=== PATIENT | male | born 1950 | race American Indian/Alaskan Native ===

== ENCOUNTER 2016-10-15 23:15 | Observation (INO) | payer MEDICARE ==
--- NOTE | 2016-10-15 23:37 | C.PDOC ---
History Of Present Illness Patient was brought into the ER via EMS for public intoxication. Patient currently has no physical complaints. Time Seen by Provider: 10/15/16 23:37 History Per: Patient, EMS History/Exam Limitations: no limitations Onset/Duration Of Symptoms: Hrs Current Symptoms Are (Timing): Still Present Suicide/Self Injury Attempted (Context): None Modifying Factor(s): Alcohol Severity: None Pain Scale Rating Of: 0 Associated Symptoms: denies: Suicidal Thoughts, Suicidal Plan Involuntary Hold By: None Recent travel outside of the [place]: No Past Medical History Reviewed: Historical Data, Nursing Documentation, Vital Signs Vital Signs: Last Vital Signs Temp 97.6 F 10/16/16 00:50 Pulse 55 L 10/16/16 01:51 Resp 18 10/16/16 01:51 BP 148/89 10/16/16 01:51 Pulse Ox 97 10/16/16 01:51 - Medical History PMH: No Chronic Diseases Surgical History: No Surg Hx Family History: States: No Known Family Hx Review Of Systems Constitutional: Negative for: Fever, Chills Gastrointestinal: Negative for: Nausea, Vomiting, Diarrhea Neurological: Positive for: Other (ETOH intoxication) Physical Exam - Physical Exam Appears: Well, Non-toxic Skin: Warm, Dry, Other (ETOH on breath) Oral Mucosa: Moist Chest: Symmetrical, No Tenderness Cardiovascular: Rhythm Regular, No Murmur Respiratory: No Rales, No Rhonchi, No Wheezing Gastrointestinal/Abdominal: Soft, No Tenderness Neurological/Psych: Oriented x3 ED Course And Treatment O2 Sat by Pulse Oximetry: 98 Pulse Ox Interpretation: Normal Progress Note: pt became agitated and combative. Had to place the pt in 4 point restraints for his safety as well as the safty of the staff Reevaluation Time: 05:12 Reassessment Condition: Improved ED OBSERVATION Discharge: Yes Date of observation admission: 10/15/16 Time of observation admission: 23:48 - Observation admission statement Patient is being placed in observation because:: acute alcohol intoxication - Goals of Observation Goals of observation are:: sobriety - Progress Note Progress Note: 10/15/16 23:48 vitals stable, no complaints 10/16/16 01:50 no complaints 10/16/16 03:50 vitals stable Disposition Counseled Patient/Family Regarding: Studies Performed, Diagnosis, Need For Followup - Disposition Disposition: HOME/ ROUTINE Disposition Time: 23:37 Condition: FAIR - Clinical Impression Clinical Impression: Alcohol intoxication - Scribe Statement The provider has reviewed the documentation as recorded by the Scribpollo Obando All medical record entries made by the Alexibe were at my direction and personally dictated by me. I have reviewed the chart and agree that the record accurately reflects my personal performance of the history, physical exam, medical decision making, and the department course for this patient. I have also personally directed, reviewed, and agree with the discharge instructions and disposition.
[2016-10-15 23:42] VITALS: RESP 18
[2016-10-16 00:51] VITALS: TEMP 97.6
[2016-10-16 06:37] VITALS: BP 157/81; PULSE 51; O2SAT 99
== END 2016-10-16 05:17 | disposition home or self-care (01) ==
LOC: C.ER 23:15 → C.9OBSV 23:47
PROVIDERS: ADMIT Emergency Medicine; ATTEND Emergency Medicine
DX: F10.120 Alcohol abuse with intoxication, uncomplicated (principal); Y90.9 Presence of alcohol in blood, level not specified

== ENCOUNTER 2017-09-21 07:37 | Emergency (ER) | payer MEDICARE ==
[2017-09-21 08:29] LABS: BASO % 0.4 % (0.0-2.0); EOS # 0.1 K/uL (0.0-0.7); EOS % 0.7 % (0.0-4.0); HEMOGLOBIN 13.9 g/dL (12.0-18.0); LYMPH # 1.9 K/uL (1.0-4.3); LYMPH % 22.6 % (20.0-40.0); MEAN CELL VOLUME 97.7 fL (80.0-94.0); MEAN CORPUSCULAR HEMOGLOBIN 33.3 pg (27.0-31.0); MEAN PLATELET VOLUME 8.9 fL (7.2-11.7); MONO # 0.6 K/uL (0.0-0.8); MONO % 6.9 % (0.0-10.0); NEUT # 5.9 K/uL (1.8-7.0); NEUT % 69.4 % (50.0-75.0); NRBC % 0.1 % (0.0-2.0); RBC 4.18 Mil/uL (4.40-5.90); RED CELL DISTRIBUTION WIDTH 13.9 % (11.5-14.5); WHITE BLOOD COUNT 8.4 K/uL (4.8-10.8)
--- NOTE | 2017-09-21 08:43 | RAD ---
Chest x-ray two views History: Shortness of breath. Comparison: None available. Findings: No focal infiltrate or effusion. Small nodular densities projecting over the right lung apex and right lung base. These may represent small nodules and or granulomas. Correlation with chest CT may helpful if clinically indicated. Heart size within normal limits. Degenerative changes in the spine and shoulders. Impression: No focal infiltrate or effusion. Small nodular densities projecting over the right lung apex and right lung base. These may represent small nodules and or granulomas. Correlation with chest CT may helpful if clinically indicated.
[2017-09-21 08:48] LABS: ALB/GLOB RATIO 1.1 (1.0-2.1); ALBUMIN 4.2 g/dL (3.5-5.0); ALT/SGPT 35 U/L (21-72); AST/SGOT 72 U/L (17-59); BLOOD UREA NITROGEN 19 mg/dL (9-20); CALCIUM 9.2 mg/dl (8.6-10.4); GFR AFRICAN-AMERICAN > 60; GFR NON-AFRICAN AMERICAN 50
[2017-09-21 08:55] LABS: B-TYPE NATRIURETIC PEPTIDE 269 pg/mL (0-900)
--- NOTE | 2017-09-21 08:55 | C.PDOC ---
History Of Present Illness 66 y/o male presents to ED with complaints of right sided chest pain for 1 week associated with yellow/green phlegm productive cough. Patient reports pain is worse with deep inspiration or movement and denies tobacco use, diaphoresis, sob , nausea, vomiting or any other complaints at this time. Time Seen by Provider: 09/21/17 07:56 Chief Complaint (Nursing): Chest Pain History Per: Patient History/Exam Limitations: no limitations Onset/Duration Of Symptoms: Days Current Symptoms Are (Timing): Still Present Quality: Sharp Past Medical History Reviewed: Historical Data, Nursing Documentation, Vital Signs Vital Signs: Last Vital Signs Temp 97.5 F L 09/21/17 07:42 Pulse 59 L 09/21/17 10:21 Resp 16 09/21/17 10:21 BP 131/71 09/21/17 10:21 Pulse Ox 99 09/21/17 12:29 - Medical History PMH: HTN Surgical History: No Surg Hx Family History: States: No Known Family Hx - Social History Hx Alcohol Use: Yes Hx Substance Use: (UNKNOWN) - Immunization History Hx Tetanus Toxoid Vaccination: No (Unknown) Hx Influenza Vaccination: No (Unknown) Hx Pneumococcal Vaccination: No (Unknown) Review Of Systems Except As Marked, All Systems Reviewed And Found Negative. Cardiovascular: Positive for: Chest Pain Respiratory: Positive for: Cough Physical Exam - Physical Exam Appears: Non-toxic, No Acute Distress Skin: Warm, Dry, No Rash Head: Atraumatic, Normacephalic Eye(s): bilateral: Normal Inspection Oral Mucosa: Moist Throat: Normal, No Erythema, No Exudate Neck: Supple Chest: Tenderness (Reproducible right sided chest wall ) Cardiovascular: Rhythm Regular Respiratory: Rales, No Rhonchi, No Wheezing Gastrointestinal/Abdominal: Soft, No Tenderness, No Guarding, No Rebound Extremity: No Calf Tenderness, Capillary Refill (<2 seconds), No Swelling Neurological/Psych: Oriented x3, Normal Speech ED Course And Treatment - Laboratory Results Result Diagrams: 09/21/17 08:18 09/21/17 08:18 ECG: Interpreted By Me, Viewed By Me ECG Rhythm: Sinus Rhythm Rate From EC (BPM) O2 Sat by Pulse Oximetry: 99 (RA) Pulse Ox Interpretation: Normal Medical Decision Making Medical Decision Making: Assessment: Chest pain Plan: ECG, D-Dimer ordered. Aspirin, Azithromycin and Toradol administered Progress: patient feels better. Troponin negative. Patient heart score 3 no risk factors for cardiac problems Patient discharged and advised follow up with pmd in 2 days Disposition Counseled Patient/Family Regarding: Studies Performed, Diagnosis, Need For Followup, Rx Given - Disposition Referrals: [facility] at [facility] [Outside] Disposition: HOME/ ROUTINE Disposition Time: 12:26 Condition: STABLE Additional Instructions: follow up with your doctor tomorrow or the next day call to make an appointment take medications as prescribed return to ER if symptoms worsens or progress Prescriptions: Azithromycin [Zithromax] 250 mg PO DAILY #4 tab Benzonatate [Tessalon Perles] 100 mg PO BID PRN #14 tab PRN Reason: Cough Naproxen [Naprosyn] 500 mg PO BID PRN #16 tab PRN Reason: Pain, Moderate (4-7) traMADol [Ultram] 50 mg PO TID PRN #8 tab PRN Reason: Pain, Moderate (4-7) Instructions: Acute Bronchitis, Costochondritis (DC) Forms: [facility] (Italian), General Discharge Instructions - Clinical Impression Clinical Impression: Bronchitis, Chest wall pain - Scribe Statement The provider has reviewed the documentation as recorded by the Alexibpollo Montes All medical record entries made by the Alexibpollo were at my direction and personally dictated by me. I have reviewed the chart and agree that the record accurately reflects my personal performance of the history, physical exam, medical decision making, and the department course for this patient. I have also personally directed, reviewed, and agree with the discharge instructions and disposition.
[2017-09-21] MEDS ORDERED: Iodixanol 320 MG/ML 100 ML BOTTLE IV ONE (10:25)
--- NOTE | 2017-09-21 11:20 | CT ---
PROCEDURE: CT Chest with contrast (Pulmonary Angiogram) HISTORY: Chest pain, lung findings and elevated d-dimer COMPARISON: Plain radiographs performed earlier the same day. TECHNIQUE: Axial computed tomography images were obtained of the chest in the pulmonary arterial phase of enhancement. Coronal and sagittal reformatted images were created and reviewed. Intravenous contrast dose: 100 mL Visipaque 320 Radiation dose: Total exam DLP = 670.27 mGy-cm. This CT exam was performed using one or more of the following dose reduction techniques: Automated exposure control, adjustment of the mA and/or kV according to patient size, and/or use of iterative reconstruction technique. FINDINGS: PULMONARY ARTERIES: There are no filling defects in the pulmonary arteries to suggest acute pulmonary embolism. AORTA: No acute findings. No thoracic aortic aneurysm. LUNGS: The lungs are clear. There is dependent atelectasis in the lung bases. No nodule, mass or pulmonary consolidation. PLEURAL SPACES: No effusion or pneumothorax. HEART: The heart is normal in size. No significant pericardial effusion. LYMPH NODES: No pathologic hilar or mediastinal lymphadenopathy. BONES, CHEST WALL: Within normal limits for the patient's age. No fracture or destructive lesion OTHER FINDINGS: Unremarkable. IMPRESSION: No CTA evidence for acute pulmonary embolism. Clear lungs. No pneumothorax or pleural effusion.
[2017-09-21 12:42] VITALS: BP 145/75; PULSE 60; RESP 20; TEMP 98.2; O2SAT 98
== END 2017-09-21 13:08 | disposition home or self-care (01) ==
LOC: C.ER 07:37
DX: J40 Bronchitis, not specified as acute or chronic (principal); R07.89 Other chest pain
CPT/HCPCS: 71046; 71275; 80053; 82550; 83735; 83880; 84484; 85025; 85378; 96374; 99285; J1885; Q9967

== ENCOUNTER 2018-04-30 20:57 | Emergency (ER) | payer MEDICARE ==
--- NOTE | 2018-04-30 21:17 | C.PDOC ---
History Of Present Illness 67 year old male is brought to the ED by EMS from [facility] for public intoxication. As per EMS patient was stumbling without falling, babbling incoherently was not being a treat to himself or others. Patient denies SI/HI, hallucinations, CP, SOB, abdominal pain, injury, fall, trauma. <Henrik Trent - Last Filed: 04/30/18 23:30> History Per: Patient, EMS History/Exam Limitations: intoxication Onset/Duration Of Symptoms: Hrs Current Symptoms Are (Timing): Still Present Suicide/Self Injury Attempted (Context): None Modifying Factor(s): Alcohol Associated Symptoms: denies: Depression, Suicidal Thoughts, Suicidal Plan Recent travel outside of the [place]: No Additional History Per: Patient, EMS <Henrik Trent - Last Filed: 04/30/18 23:30> <Porter Stern - Last Filed: 05/01/18 05:58> Time Seen by Provider: 04/30/18 21:10 Chief Complaint (Nursing): Substance Abuse Past Medical History Reviewed: Historical Data, Nursing Documentation, Vital Signs Vital Signs: Last Vital Signs Temp 98 F 04/30/18 21:01 Pulse 86 04/30/18 21:01 Resp 18 04/30/18 21:01 BP 136/79 04/30/18 21:01 Pulse Ox 98 04/30/18 21:01 - Medical History PMH: HTN Surgical History: No Surg Hx Family History: States: Unknown Family Hx - Social History Hx Alcohol Use: Yes Hx Substance Use: (UNKNOWN) - Immunization History Hx Tetanus Toxoid Vaccination: No (Unknown) Hx Influenza Vaccination: No (Unknown) Hx Pneumococcal Vaccination: No (Unknown) <Henrik Trent E - Last Filed: 04/30/18 23:30> Vital Signs: Last Vital Signs Temp 98 F 04/30/18 23:21 Pulse 79 04/30/18 23:21 Resp 18 04/30/18 23:21 BP 136/79 04/30/18 23:21 Pulse Ox 98 04/30/18 23:32 <Porter Stern - Last Filed: 05/01/18 05:58> Review Of Systems Constitutional: Negative for: Fever, Chills Cardiovascular: Negative for: Chest Pain Respiratory: Negative for: Shortness of Breath Gastrointestinal: Negative for: Nausea, Vomiting, Abdominal Pain Skin: Negative for: Rash Neurological: Negative for: Weakness Psych: Negative for: Depression, Suicidal ideation <Henrik Trent - Last Filed: 04/30/18 23:30> Physical Exam - Physical Exam Appears: Non-toxic, No Acute Distress, Other (intoxicated, elderly black male) Skin: Normal Color, Warm, Dry Head: Atraumatic, Normacephalic Eye(s): bilateral: Normal Inspection Neck: Normal ROM, Supple Chest: Symmetrical Cardiovascular: Rhythm Regular Respiratory: Normal Breath Sounds, No Rales, No Rhonchi, No Wheezing Gastrointestinal/Abdominal: Soft, No Tenderness, No Guarding, No Rebound Extremity: Normal ROM, No Tenderness, No Swelling Neurological/Psych: Oriented x3, Normal Speech, Normal Cognition Gait: Steady <Henrik Trent - Last Filed: 04/30/18 23:30> ED Course And Treatment O2 Sat by Pulse Oximetry: 98 (On RA) Pulse Ox Interpretation: Normal Reevaluation Time: 00:00 Reassessment Condition: Improved <Henrik Trent - Last Filed: 04/30/18 23:30> Medical Decision Making Medical Decision Making: alcohol abuse no injuries 0000: signed over to overnight MD <Henrik Trent - Last Filed: 04/30/18 23:30> Disposition - Disposition Disposition Time: 00:00 <Henrik Trent - Last Filed: 04/30/18 23:30> Counseled Patient/Family Regarding: Diagnosis - Disposition Disposition Time: 06:00 - POA Present On Arrival: None <Porter Stern - Last Filed: 05/01/18 05:58> - Disposition Referrals: [facility] [Outside] Disposition: HOME/ ROUTINE Condition: STABLE Instructions: Alcohol Abuse and Alcoholism (DC) Forms: [facility] (Frisian) - Clinical Impression Clinical Impression: Alcohol intoxication - Scribe Statement The provider has reviewed the documentation as recorded by the Scribe Marcus Caceres All medical record entries made by the Scribe were at my direction and personally dictated by me. I have reviewed the chart and agree that the record accurately reflects my personal performance of the history, physical exam, medical decision making, and the department course for this patient. I have also personally directed, reviewed, and agree with the discharge instructions and disposition. <Henrik Trent E - Last Filed: 04/30/18 23:30> Physician Patient Turnover Patient Signed Over To: Porter Stern Handoff Comments: dispo in AM when sober <Henrik Trent - Last Filed: 04/30/18 23:30>
[2018-05-01 05:47] VITALS: BP 130/82; PULSE 76; RESP 16; TEMP 97.9; O2SAT 99
== END 2018-05-01 06:20 | disposition home or self-care (01) ==
LOC: C.ER 20:57
DX: F10.129 Alcohol abuse with intoxication, unspecified (principal)